=== PATIENT | female | born 1945 | race Caucasian/White ===

== ENCOUNTER 2023-06-17 10:21 | Emergency (ER) | payer MEDICARE, OTHER, SELFPAY ==
[2023-06-17] VITALS (9 sets, daily range): BP systolic 143–160; BP diastolic 68–82; PULSE 70–86; RESP 14–29; TEMP 36.6; O2SAT 95–98; BMI 28.5
--- NOTE | 2023-06-17 10:29 | DI.RAD.S_ITS ---
PROCEDURE: XR CHEST 1V INDICATIONS: SOB TECHNIQUE: One view of the chest was acquired. COMPARISON: None. FINDINGS: Surgical changes and devices: Cervical fixation plate is partially visualized. Lungs and pleura: Lungs are clear. No pleural effusions or pneumothorax. Lungs are hyperinflated suggestive of COPD. Mediastinum: Mediastinal contours appear normal. Heart size is mildly prominent. Bones and chest wall: No suspicious bony lesions. Overlying soft tissues appear unremarkable. IMPRESSION: No acute pulmonary process. Dictated by: Carla Juarez M.D. on 06/17/2023 at 11:11 Approved by: Carla Juarez M.D. on 06/17/2023 at 11:11
--- NOTE | 2023-06-17 10:44 | ED_ITS ---
HPI - General Adult General Chief complaint: Shortness of Breath/Dyspnea Stated complaint: sent by [facility] fatigue/SOB/ joints hurt Time Seen by Provider: 06/17/23 10:28 Source: patient Mode of arrival: Ambulatory History of Present Illness HPI narrative: Patient is a 78-year-old female. Does have a history of hypothyroid. Approximately 2 months ago she had a right knee arthroscopic surgery. Since that time she is not had any changes in her medicines other than she has started an aspirin based on the surgeon who did her knee surgery. For the past several weeks she is had progressively worsening fatigue to the point where she can walk however she is having a hard time going [place] and [place] She denies any fevers. No chest pain or shortness of breath. No abdominal pain. No change in bowel habits or urinary symptoms. No skin rashes. She is not diabetic. She is having some joint pain. Related Data Allergies Allergy/AdvReac Type Severity Reaction Status Date / Time No Known Drug Allergies Allergy Verified 06/17/23 10:31 Review of Systems Review of Systems ROS Unobtainable: All systems reviewed & are unremarkable except as noted in HPI and below Patient History Social History Smoking Status: Unknown if ever smoked Smoking Status: Unknown if ever smoked alcohol intake frequency: holidays/special occasions only Substance Use Type: does not use Exam Initial Vital Signs Initial Vital Signs: Vital Signs Temperature 97.9 F 06/17/23 10:22 Pulse Rate 86 06/17/23 10:22 Respiratory Rate 14 06/17/23 10:22 Blood Pressure 143/73 H 06/17/23 10:22 Pulse Oximetry 98 06/17/23 10:22 Oxygen Delivery Method Room Air 06/17/23 10:22 HENMT Head: normal to inspection and normocephalic Resp Effort & Inspection: normal respiratory effort Auscultation: clear to auscultation bilaterally Cardio Rate: regular rate Rhythm: regular rhythm GI Inspection: normal to inspection Palpation: No tender Skin General: no rashes or lesions noted Neuro General: patient alert, patient oriented x3 and moves all extremities Speech: speech normal Extrem General: normal to inspection, capillary refill normal and No edema Course Orders Ordered: ED Orders 06/17/23 10:29 XR chest 1V Stat 06/17/23 10:30 EKG-12 Lead Stat 06/17/23 10:37 Covid-19 + FLU A/B + RSV - PCR Stat 06/17/23 10:54 Complete Blood Count AUTO DIFF Stat Comprehensive Metabolic Panel Stat Free T3, Triiodothyronine Free Stat Free T4, Direct Thyroxine Stat NT-proBNP (BNP-Adult 18+) Stat Thyroid Stimulating Hormone Stat Troponin & CK Cardiac Panel Stat 06/17/23 12:15 Urinalysis and Microscopic Stat Urine Culture Stat Discontinued Medications Sodium Chloride (Normal Saline 0.9%) 1,000 mls @ 1,000 mls/hr IV BOLUS ONE Stop: 06/17/23 11:28 Last Infusion: 06/17/23 13:06 Dose: 0 mls/hr Documented By: Admin: 06/17/23 11:17 Dose: 1,000 mls/hr Documented By: Vital Signs Vital signs: Vital Signs - 8 hr 06/17/23 10:22 06/17/23 10:30 06/17/23 10:30 Temperature 97.9 F Pulse Rate 86 79 Respiratory Rate 14 22 Blood Pressure 143/73 H 150/78 H Pulse Oximetry 98 95 Oxygen Delivery Method Room Air 06/17/23 11:00 06/17/23 11:00 06/17/23 11:30 Temperature Pulse Rate 74 Respiratory Rate 23 Blood Pressure 149/70 H 153/82 H Pulse Oximetry 95 Oxygen Delivery Method 06/17/23 11:30 06/17/23 12:15 06/17/23 12:30 Temperature Pulse Rate 72 71 70 Respiratory Rate 21 21 Blood Pressure Pulse Oximetry 95 95 97 Oxygen Delivery Method 06/17/23 13:00 06/17/23 14:57 06/17/23 14:58 Temperature Pulse Rate 72 74 Respiratory Rate 22 Blood Pressure 160/68 H Pulse Oximetry 97 95 Oxygen Delivery Method 06/17/23 14:58 Temperature Pulse Rate 74 Respiratory Rate 29 H Blood Pressure Pulse Oximetry 95 Oxygen Delivery Method Medical Decision Making Lab Data Lab results reviewed: Yes I reviewed the patient's lab results. 06/17/23 10:54 06/17/23 10:54 Labs: Lab Results 06/17/23 06/17/23 06/17/23 Range/Units 10:37 10:54 10:54 WBC 6.6 (4.5-11.0) X10^3/uL RBC 4.85 (4.0-5.2) X10^6/uL Hgb 13.9 (12.0-16.0) g/dL Hct 41.5 (36-46) % MCV 85.7 (80-100) fL MCH 28.6 (26-34) PG MCHC 33.4 (30-36) % RDW 13.6 (11.6-14.8) % Plt Count 248 (150-400) X10^3/uL Neut % (Auto) 61.9 (50-75) % Lymph % (Auto) 25.0 (25-40) % [place] % (Auto) 8.1 (3-14) % Eos % (Auto) 4.2 H (2-4) % Baso % (Auto) 0.8 (0-2) % Neut # (Auto) 4100 (3138-5221) /uL Lymph # (Auto) 1600 (7252-8765) /uL [place] # (Auto) 500 (0-900) /uL Eos # (Auto) 300 (0-450) /uL Baso # (Auto) 100 (0-100) /uL Sodium 136 L (137-145) mmol/L Potassium 4.9 (3.4-5.1) mmol/L Chloride 103 (98-107) mmol/L Carbon Dioxide 26 (22-32) mmol/L BUN 17 (7-17) mg/dL Creatinine 0.62 (0.52-1.04) mg/dL Estimated GFR > 60 (>60) mL/min BUN/Creatinine Ratio 27.4 H (6-22) Glucose 102 (80-110) mg/dL Calcium 9.3 (8.4-10.2) mg/dL Total Bilirubin 0.6 (0.2-1.3) mg/dL AST 39 H (14-36) IU/L ALT 27 (<35) IU/L Alkaline Phosphatase 52 (38-126) U/L Total Creatine Kinase 82 (30-135) U/L Troponin I < 0.012 (0.01-0.034) ng/mL NT-Pro-B Natriuret Pep 45 (<450) pg/mL Total Protein 7.8 (6.3-8.2) g/dL Albumin 4.2 (3.5-5.0) g/dL Globulin 3.6 (1.7-4.1) g/dL Albumin/Globulin Ratio 1.2 (1.0-2.8) TSH (0.47-4.68) uIU/mL Free T4 (0.78-2.19) ng/dL Free T3 (2.77-5.27) pg/mL Urine Color Urine Appearance Urine pH (4.5-8.0) Ur Specific [place] (1.000-1.035) Urine Protein (Negative) Urine Glucose (UA) (Negative) g/dL Urine Ketones (NEGATIVE) Urine Occult Blood (Negative) Urine Nitrate (Negative) Urine Bilirubin (NEGATIVE) Urine Urobilinogen (0.2) E.U./dL Ur Leukocyte Esterase (NEGATIVE) Urine RBC (0-5/HPF) Urine WBC (0-5/HPF) Ur Squamous Epith Cells (0-5/HPF) Urine Bacteria (None) Ur Culture Indicated? SARS-CoV-2 (PCR) Negative (Negative) Influenza A (RT-PCR) Flu a negative (NEGATIVE) Influenza B (RT-PCR) Flu b negative (NEGATIVE) RSV (PCR) Negative (Negative) 06/17/23 06/17/23 06/17/23 Range/Units 10:54 10:54 12:15 WBC (4.5-11.0) X10^3/uL RBC (4.0-5.2) X10^6/uL Hgb (12.0-16.0) g/dL Hct (36-46) % MCV (80-100) fL MCH (26-34) PG MCHC (30-36) % RDW (11.6-14.8) % Plt Count (150-400) X10^3/uL Neut % (Auto) (50-75) % Lymph % (Auto) (25-40) % [place] % (Auto) (3-14) % Eos % (Auto) (2-4) % Baso % (Auto) (0-2) % Neut # (Auto) (6808-1070) /uL Lymph # (Auto) (1305-3348) /uL [place] # (Auto) (0-900) /uL Eos # (Auto) (0-450) /uL Baso # (Auto) (0-100) /uL Sodium (137-145) mmol/L Potassium (3.4-5.1) mmol/L Chloride (98-107) mmol/L Carbon Dioxide (22-32) mmol/L BUN (7-17) mg/dL Creatinine (0.52-1.04) mg/dL Estimated GFR (>60) mL/min BUN/Creatinine Ratio (6-22) Glucose (80-110) mg/dL Calcium (8.4-10.2) mg/dL Total Bilirubin (0.2-1.3) mg/dL AST (14-36) IU/L ALT (<35) IU/L Alkaline Phosphatase (38-126) U/L Total Creatine Kinase (30-135) U/L Troponin I (0.01-0.034) ng/mL NT-Pro-B Natriuret Pep (<450) pg/mL Total Protein (6.3-8.2) g/dL Albumin (3.5-5.0) g/dL Globulin (1.7-4.1) g/dL Albumin/Globulin Ratio (1.0-2.8) TSH 2.90 (0.47-4.68) uIU/mL Free T4 0.79 (0.78-2.19) ng/dL Free T3 5.88 H (2.77-5.27) pg/mL Urine Color Yellow Urine Appearance Slightly cloudy Urine pH 5.5 (4.5-8.0) Ur Specific [place] 1.010 (1.000-1.035) Urine Protein Negative (Negative) Urine Glucose (UA) Negative (Negative) g/dL Urine Ketones Negative (NEGATIVE) Urine Occult Blood Trace-intact (Negative) Urine Nitrate Negative (Negative) Urine Bilirubin Negative (NEGATIVE) Urine Urobilinogen 0.2 (0.2) E.U./dL Ur Leukocyte Esterase 3+ H (NEGATIVE) Urine RBC 0-1/hpf (0-5/HPF) Urine WBC 10-30/hpf H (0-5/HPF) Ur Squamous Epith Cells 10-30 /hpf H (0-5/HPF) Urine Bacteria Moderate (10-30) H (None) Ur Culture Indicated? Specimen cultured SARS-CoV-2 (PCR) (Negative) Influenza A (RT-PCR) (NEGATIVE) Influenza B (RT-PCR) (NEGATIVE) RSV (PCR) (Negative) Imaging Data Chest x-ray: Radiologist's Impression: PROCEDURE:? XR CHEST 1V ? INDICATIONS:? SOB ? TECHNIQUE:? One view of the chest was acquired.? ? COMPARISON:? None. ? FINDINGS:? ? Surgical changes and devices:? Cervical fixation plate is partially visualized. ? Lungs and pleura:? Lungs are clear.? No pleural effusions or pneumothorax.? Lungs are hyperinflated suggestive of COPD. ? Mediastinum:? Mediastinal contours appear normal.? Heart size is mildly prominent. ? Bones and chest wall:? No suspicious bony lesions.? Overlying soft tissues appear unremarkable.? ? IMPRESSION:? No acute pulmonary process. ECG Data Attestation: I personally reviewed and interpreted this ECG as follows: Interpretation: Sinus rhythm Ventricular rate is 73 Normal axis Normal QRS Normal QTC No ST T wave changes MDM Narrative Medical decision making narrative: Workup here in the emergency department is very reassuring. TSH is unremarkable . Patient is not anemic. No specific signs of an infection. She does have leukocytes and bacteria in her urine but also quite a bit of epi cells. She is not having any UTI symptoms. Had a discussion that potentially UTI could be causing her body aches and fatigue. After this discussion our decision was to wait on treating her with any antibiotics until the culture results. We will contact her if needed. She understands lack of a definitive diagnosis. No indication for admission to the hospital. Patient is ambulatory and tolerating oral intake. Will have her contact her primary doctor for follow-up. She was given return precautions. She expressed understanding and agreement. Discharge Plan Departure Patient Disposition: Home Clinical Impression: Fatigue Instructions: DI for Fatigue Activity Restrictions/Additional Instructions: Recommend that you continue to take all of your medications as directed. We will contact you if your urine culture is positive and we need to start you on any antibiotics. Return to the emergency department for new symptoms. Referrals: Misdaniel,MD Dinorah [Primary Care Provider] - Stand Alone Forms: Patient Portal/API
[2023-06-17 11:04] LABS: Add Manual Diff / Slide Review NO; Basophils Absolute Auto 100 /uL (0-100); Basophils Percent Auto 0.8 % (0-2); Eosinophils Absolute Auto 300 /uL (0-450); Eosinophils Percent Auto 4.2 % (2-4); Hematocrit 41.5 % (36-46); Hemoglobin 13.9 g/dL (12.0-16.0); Lymphocytes Absolute Auto 1600 /uL (1100-4500); Mean Corpuscular HGB Conc 33.4 % (30-36); Mean Corpuscular Hemoglobin 28.6 PG (26-34); Mean Corpuscular Volume 85.7 fL (80-100); Monocytes Absolute Auto 500 /uL (0-900); Monocytes Percent Auto 8.1 % (3-14); Neutrophils Absolute Auto 4100 /uL (1500-7000); Neutrophils Percent Auto 61.9 % (50-75); Platelet Count 248 X10^3/uL (150-400); Red Blood Cell Count 4.85 X10^6/uL (4.0-5.2); Red Cell Distribution Width 13.6 % (11.6-14.8); White Blood Cell Count 6.6 X10^3/uL (4.5-11.0)
[2023-06-17] MEDS: SODIUM CHLORIDE 0.9% 1,000 ML 1000 ML IV (11:17)
[2023-06-17 11:21] LABS: Alanine Aminotransferase 27 IU/L (<35); Albumin 4.2 g/dL (3.5-5.0); Albumin Globulin Ratio 1.2 (1.0-2.8); Alkaline Phosphatase 52 U/L (38-126); Aspartate Aminotransferase 39 IU/L (14-36); BUN Creatinine Ratio 27.4 (6-22); Bilirubin Total 0.6 mg/dL (0.2-1.3); Blood Urea Nitrogen 17 mg/dL (7-17); Calcium 9.3 mg/dL (8.4-10.2); Carbon Dioxide 26 mmol/L (22-32); Chloride 103 mmol/L (98-107); Creatine Kinase 82 U/L (30-135); Estimated Glomerular Filt Rate > 60 mL/min (>60); Globulin 3.6 g/dL (1.7-4.1); Glucose 102 mg/dL (80-110); Potassium 4.9 mmol/L (3.4-5.1); Sodium 136 mmol/L (137-145); Total Protein 7.8 g/dL (6.3-8.2)
[2023-06-17 11:22] LABS: HEMOLYSIS 126 (0-50)
[2023-06-17 11:33] LABS: NT-proBNP (BNP-Adult 18+) 45 pg/mL (<450); Troponin I < 0.012 ng/mL (0.01-0.034)
[2023-06-17 12:21] LABS: Influenza A - CEPHEID Flu A NEGATIVE (NEGATIVE); Influenza B - CEPHEID Flu B NEGATIVE (NEGATIVE); Respiratory Syncytial Virus Negative (Negative)
[2023-06-17 12:22] LABS: COVID-19 CEPHEID 4-PLEX PCR Negative (Negative)
[2023-06-17 14:15] LABS: Bilirubin Urine UA NEGATIVE (NEGATIVE); Color Urine UA YELLOW; Glucose Urine UA NEGATIVE (Negative); Ketones Urine UA NEGATIVE (NEGATIVE); Leukocyte Esterase Urine UA 3+ (NEGATIVE); Nitrite Urine UA NEGATIVE (Negative); Occult Blood Urine UA TRACE-INTACT (Negative); Protein Urine UA NEGATIVE (Negative); Urobilinogen Urine UA 0.2 E.U./dL (0.2)
[2023-06-17 14:16] LABS: Appearance Urine UA Slightly Cloudy; pH Urine UA 5.5 (4.5-8.0)
[2023-06-17 14:25] LABS: Bacteria Urine Moderate (10-30); Culture Indicated Urine Specimen Cultured; RBC Urine 0-1/HPF (0-5/HPF); Squamous Epithelial Cell Urine 10-30 /HPF (0-5/HPF); WBC Urine 10-30/HPF (0-5/HPF)
[2023-06-17 15:38] LABS: Free T3, Triiodothyronine Free 5.88 pg/mL (2.77-5.27); Free T4, Direct Thyroxine 0.79 ng/dL (0.78-2.19)
== END 2023-06-17 15:29 | disposition home or self-care (01) ==
PROVIDERS: Emergency Provider Emergency Medicine
DX: R53.83 Other fatigue (principal); R06.02 Shortness of breath; R07.9 Chest pain, unspecified; Z20.822 Contact with and (suspected) exposure to COVID-19
CPT/HCPCS: 0241U; 36415; 71045; 80053; 81001; 82550; 83880; 84439; 84443; 84481; 84484; 85025; 87086; 93005; 93010; 99284

== ENCOUNTER → 2025-05-08 07:22 | Outpatient (CLI) | payer MEDICARE, OTHER, SELFPAY ==
[2025-05-08 08:05] LABS: Add Manual Diff / Slide Review NO; Basophils Absolute Auto 0 /uL (0-100); Basophils Percent Auto 0.6 % (0-2); Eosinophils Absolute Auto 300 /uL (0-450); Hematocrit 41.2 % (36-46); Lymphocytes Absolute Auto 1700 /uL (1100-4500); Lymphocytes Percent Auto 23.4 % (25-40); Mean Corpuscular HGB Conc 33.9 % (30-36); Mean Corpuscular Hemoglobin 29.6 PG (26-34); Mean Corpuscular Volume 87.2 fL (80-100); Monocytes Absolute Auto 600 /uL (0-900); Monocytes Percent Auto 7.7 % (3-14); Neutrophils Absolute Auto 4600 /uL (1500-7000); Neutrophils Percent Auto 64.3 % (50-75); Platelet Count 277 X10^3/uL (150-400); Red Blood Cell Count 4.72 X10^6/uL (4.0-5.2); Red Cell Distribution Width 13.9 % (11.6-14.8); White Blood Cell Count 7.2 X10^3/uL (4.5-11.0)
[2025-05-08 08:13] LABS: Hemoglobin A1C% w Est Avg Glu 6.3 % (4.0-6.0)
[2025-05-08 08:32] LABS: Alanine Aminotransferase 26 IU/L (<35); Albumin Globulin Ratio 1.5 (1.0-2.8); Alkaline Phosphatase 67 U/L (38-126); Aspartate Aminotransferase 30 IU/L (14-36); Bilirubin Total 0.6 mg/dL (0.2-1.3); Blood Urea Nitrogen 19 mg/dL (7-17); Calcium 9.3 mg/dL (8.4-10.2); Carbon Dioxide 26 mmol/L (22-32); Chloride 104 mmol/L (98-107); Cholesterol 246 mg/dL (140-199); Estimated Glomerular Filt Rate > 60 mL/min (>60); Globulin 2.6 g/dL (1.7-4.1); Glucose 142 mg/dL (70-99); HDL Cholesterol 66 mg/dL (40-60); HEMOLYSIS < 15 (0-50); LDL Cholesterol Calculated 155 mg/dL (<100); Potassium 4.2 mmol/L (3.4-5.1); Sodium 136 mmol/L (137-145); Total Protein 6.6 g/dL (6.3-8.2); Triglycerides 125 mg/dL (35-150)
[2025-05-08 09:02] LABS: Thyroid Stimulating Hormone 3.56 uIU/mL (0.47-4.68)
[2025-05-08 11:39] LABS: Creatinine Urine Random 111.98 mg/dL
[2025-05-08 11:43] LABS: Microalbumin Urine Random 11.2 mg/dL (0-1.6)
== END ==
LOC: LAB 07:26
PROVIDERS: PCP Family Medicine
DX: E11.9 Type 2 diabetes mellitus without complications (principal)
CPT/HCPCS: 36415; 80053; 80061; 82043; 82570; 83036; 84443; 85025

== ENCOUNTER → 2025-05-10 10:39 | Outpatient (CLI) | payer MEDICARE, OTHER, SELFPAY ==
[2025-05-10 13:30] LABS: Occult Blood 1 Negative (Negative); Occult Blood 2 Negative (Negative); Occult Blood 3 Negative (Negative)
== END ==
PROVIDERS: PCP Family Medicine
DX: E11.9 Type 2 diabetes mellitus without complications (principal); R53.83 Other fatigue; Z12.11 Encounter for screening for malignant neoplasm of colon
CPT/HCPCS: 82270